=== PATIENT | male | born 1945 | race Caucasian/White ===

== ENCOUNTER 2018-06-17 13:29 | Emergency (ER) | payer MEDICAID, MEDICARE ==
[2018-06-17] MEDS ORDERED: traMADol 50 MG Tab PO ONE (14:13)
--- NOTE | 2018-06-17 14:14 | EDM.PDOC ---
ED HPI GENERAL MEDICAL PROBLEM - General Chief Complaint: General Stated Complaint: PAIN IN RIBS Time Seen by Provider: 06/17/18 13:41 Source of Information: Reports: Patient History Limitations: Reports: No Limitations - History of Present Illness INITIAL COMMENTS - FREE TEXT/NARRATIVE: History of present illness: []Patient has been moving and started complaining of right posterior rib pain and nonradiating. Review of systems: As per history of present illness and below otherwise all systems reviewed and negative. Past medical history: As per history of present illness and as reviewed below otherwise noncontributory. Surgical history: As per history of present illness and as reviewed below otherwise noncontributory. Social history: No reported history of drug or alcohol abuse. Family history: As per history of present illness and as reviewed below otherwise noncontributory. Physical exam: General: Well developed, well nourished in NAD HEENT: Atraumatic, normocephalic, pupils reactive, negative for conjunctival pallor or scleral icterus, mucous membranes moist, throat clear, neck supple, nontender, trachea midline. Lungs: Clear to auscultation, breath sounds equal bilaterally, chest tender right posterior ribs distal muscles, no bony or subcutaneous crepitance Heart: S1S2, regular, negative for clicks, rubs, or JVD. Abdomen: NABS, Soft, nondistended, nontender. Negative for masses or hepatosplenomegaly. Negative for costovertebral tenderness. Pelvis: Stable nontender. Genitourinary: Deferred. Rectal: Deferred. Extremities: Atraumatic, negative for cords or calf pain. Neurovascular unremarkable. Neuro: Awake, alert, oriented. Cranial nerves II through XII unremarkable. Cerebellum unremarkable. Motor and sensory unremarkable throughout. Exam nonfocal. Skin:warm and dry Diagnostics: Rib x-rays and chest x-ray negative for pneumothorax or fracture Therapeutics: Tramadol ED Course: Stable Impression: Chest wall contusion Prescriptions: Tramadol Plan: Take meds as directed, follow up with your primary care physician, return to ER if symptoms worsen or change. Definitive disposition and diagnosis as appropriate pending reevaluation and review of above. Right ribs Pain Score (Numeric/FACES): 8 - Related Data Allergies Allergy/AdvReac Type Severity Reaction Status Date / Time levofloxacin [From Levaquin] Allergy Swelling Verified 06/17/18 14:08 lorazepam Allergy Swelling Verified 06/17/18 14:08 Home Meds: Home Meds traMADol HCl [Tramadol HCl] 50 mg PO Q6H PRN #20 tablet 06/17/18 [Rx] ED ROS GENERAL - Review of Systems Review Of Systems: ROS reveals no pertinent complaints other than HPI. ED EXAM, GENERAL - Physical Exam Exam: See Below (See history of present illness) Course - Vital Signs Last Recorded V/S: Last Vital Signs Temp 98.5 F 06/17/18 14:08 Pulse 63 06/17/18 14:08 Resp 16 06/17/18 14:08 BP 146/83 H 06/17/18 14:08 Pulse Ox 95 06/17/18 14:08 - Orders/Labs/Meds Orders: Active Orders 24 hr Category Date Time Status Blood Glucose Check, Bedside [RC] ONETIME Care 06/17/18 14:13 Active Meds: Medications Discontinued Medications Generic Name Dose Route Start Last Admin Trade Name Freq PRN Reason Stop Dose Admin Tramadol HCl 100 mg 06/17/18 14:13 06/17/18 14:31 Ultram PO 06/17/18 14:14 100 mg ONETIME ONE Administration Tramadol HCl Confirm 06/17/18 14:28 06/17/18 14:35 Ultram Administered 06/17/18 14:29 Not Given Dose 50 mg .ROUTE .STK-MED ONE Departure - Departure Time of Disposition: 15:05 Disposition: Home, Self-Care 01 Condition: Good Clinical Impression: Contusion of rib on right side Qualifiers: Encounter type: initial encounter Qualified Code(s): S20.211A - Contusion of right front wall of thorax, initial encounter - Discharge Information *PRESCRIPTION DRUG MONITORING PROGRAM REVIEWED*: No *COPY OF PRESCRIPTION DRUG MONITORING REPORT IN PATIENT STACEY: No Prescriptions: traMADol HCl [Tramadol HCl] 50 mg PO Q6H PRN #20 tablet PRN Reason: Pain Referrals: PCP,Unknown [Primary Care Provider] - Forms: ED Department Discharge Additional Instructions: The following information is given to patients seen in the emergency department who are being discharged to home. This information is to outline your options for follow-up care. We provide all patients seen in our emergency department with a follow-up referral. The need for follow-up, as well as the timing and circumstances, are variable depending upon the specifics of your emergency department visit. If you don't have a primary care physician on staff, we will provide you with a referral. We always advise you to contact your personal physician following an emergency department visit to inform them of the circumstance of the visit and for follow-up with them and/or the need for any referrals to a consulting specialist. The emergency department will also refer you to a specialist when appropriate. This referral assures that you have the opportunity for follow-up care with a specialist. All of these measure are taken in an effort to provide you with optimal care, which includes your follow-up. Under all circumstances we always encourage you to contact your private physician who remains a resource for coordinating your care. When calling for follow-up care, please make the office aware that this follow-up is from your recent emergency room visit. If for any reason you are refused follow-up, please contact the [facility] Emergency Department at and asked to speak to the emergency department charge nurse. Take meds as directed, follow up with your primary care physician, return to ER if symptoms worsen or change. [facility] [address] [place] [address] - My Orders Last 24 Hours: My Active Orders 06/17/18 14:13 Blood Glucose Check, Bedside [RC] ONETIME - Assessment/Plan Last 24 Hours: My Active Orders 06/17/18 14:13 Blood Glucose Check, Bedside [RC] ONETIME
[2018-06-17] MEDS ORDERED: traMADol 50 MG Tab ONE (14:28)
--- NOTE | 2018-06-17 15:00 | CR ---
Indication: Pain in right ribs for 3 weeks. Technique: Three views of the right ribs retain. Comparison: None Findings: No displaced right rib fractures are identified. Surgical clips are identified in the right upper quadrant. No pneumothorax is identified. Impression: No displaced right rib fractures. Dictated by Tia Mcbride MD @ Jun 17 2018 2:58PM Signed by Dr. Tia Mcbride @ Jun 17 2018 2:58PM
== END 2018-06-17 15:30 | disposition home or self-care (01) ==
LOC: MW.ED 13:29
DX: S20.211A Contusion of right front wall of thorax, initial encounter (principal); Z88.1 Allergy status to other antibiotic agents; Z88.8 Allergy status to other drugs, medicaments and biological substances; X58.XXXA Exposure to other specified factors, initial encounter
CPT/HCPCS: 71100; 99283; A9270

== ENCOUNTER 2019-09-01 08:38 | Emergency (ER) | payer MEDICAID, MEDICARE, OTHER, SELFPAY ==
[2019-09-01] MEDS ORDERED: Sodium Chloride 0.9% 10 ML Syringe FLUSH PRN (08:54)
[2019-09-01] MEDS ORDERED: Sodium Chloride 0.9% 10 ML SDV IV PRN (08:54)
[2019-09-01] MEDS ORDERED: Ibuprofen 400 MG Tab PO ONE (08:54)
[2019-09-01] MEDS ORDERED: Sodium Chloride 0.9% 2.5 ML Syringe FLUSH PRN (08:54)
[2019-09-01] MEDS ORDERED: Acetaminophen 500 MG Tab PO ONE (08:54)
--- NOTE | 2019-09-01 08:59 | EDM.PDOC ---
ED HPI GENERAL MEDICAL PROBLEM - General Chief Complaint: ENT Problem Stated Complaint: LT SIDE CHEEK SWOLLEN Time Seen by Provider: 09/01/19 08:40 Source of Information: Reports: Patient History Limitations: Reports: No Limitations - History of Present Illness INITIAL COMMENTS - FREE TEXT/NARRATIVE: 73-year-old male with past medical history of tonsillar cancer status post radi ation (in remission), hypertension, type 2 diabetes presenting with facial swelling. 1 day history of left-sided mandibular swelling along with pain. This was not present when he went to bed last night. Intermittent history of dental care, has not seen a dentist in several years. No self treatment prior to arrival. Denies shortness of breath, voice change, neck stiffness, difficulty handling secretions. left lower dental Pain Score (Numeric/FACES): 10 - Related Data Allergies Allergy/AdvReac Type Severity Reaction Status Date / Time levofloxacin [From Levaquin] Allergy Swelling Verified 09/01/19 08:51 lorazepam Allergy Swelling Verified 09/01/19 08:51 Home Meds: Home Meds ALPRAZolam [Alprazolam ODT] 0.5 mg PO BID 09/01/19 [History] Amoxicillin/Clavulanate K [Augmentin 875-125 MG] 1 tab PO BID 10 Days #20 tablet 09/01/19 [Rx] Aspirin 81 mg PO DAILY 09/01/19 [History] Hydrocodone/Acetaminophen [Hydrocodone-Acetamin 5-217/10] 1 tab PO ASDIRECTED PRN 09/01/19 [History] Losartan [Cozaar] 25 mg PO DAILY 09/01/19 [History] Pioglitazone [Actos] 15 mg PO DAILY 09/01/19 [History] atorvaSTATin [Lipitor] 10 mg PO BEDTIME 09/01/19 [History] rOPINIRole [Requip] 0.25 mg PO BEDTIME 09/01/19 [History] Past Medical History Cardiovascular History: Reports: High Cholesterol, Hypertension Musculoskeletal History: Reports: Back Pain, Chronic Endocrine/Metabolic History: Reports: Diabetes, Type II - Infectious Disease History Infectious Disease History: Reports: Chicken Pox - Past Surgical History HEENT Surgical History: Reports: Oral Surgery, Tonsillectomy GI Surgical History: Reports: Cholecystectomy Musculoskeletal Surgical History: Reports: Arthroscopic Knee Social & Family History - Family History Family Medical History: Noncontributory - Caffeine Use Caffeine Use: Reports: Coffee ED ROS ENT - Review of Systems Review Of Systems: See Below Constitutional: Denies: Fever HEENT: Reports: Dental Pain. Denies: Throat Pain, Throat Swelling Respiratory: Denies: Shortness of Breath Cardiovascular: Denies: Chest Pain GI/Abdominal: Denies: Nausea, Vomiting Skin: Denies: Rash ED EXAM, ENT - Physical Exam Exam: See Below Text/Narrative:: Vital signs reviewed. Nursing notes reviewed. Constitutional: Awake, alert, non-distressed. Head: Normocephalic, atraumatic. Eyes: EOMI, conjunctiva normal, no discharge, no scleral icterus. Ears, Nose, Throat: External ears and nose normal, moist oral mucosa. No uvular deviation, no lingual elevation, floor of mouth is soft. Normal voice. Handling secretions without difficulty. There is a large area of swelling to the left side of the mandible with associated tenderness. Inspection of the oropharyngeal cavity reveals no obvious periapical abscess. Overall poor dentition. Neck: Supple, normal range of motion, able to flex and extend fully. No pain with tracheal tug. Cardiovascular: 2+ radial pulse, capillary refill less than 2 seconds. Pulmonary: normal work of breathing, no accessory muscle use. Integumentary: Appropriate color for ethnicity, warm, dry, no pallor or jaundice, no rash. Neurologic: Alert, answering questions appropriately, normal speech, no facial droop, moving all extremities well. Psychiatric: Appropriate mood and affect, normal thought process. Course - Vital Signs Text/Narrative:: 73-year-old male with facial swelling. Patient hemodynamically stable, afebrile, well-appearing, looks nontoxic. Differential diagnosis includes but is not limited to: Submandibular abscess, Madi's angina, periapical abscess, periodontal abscess, sialoadenitis, etc. Labs show hyperglycemia, otherwise reassuring. CT imaging demonstrated a possible dental abscess within the left second mandibular bicuspid with adjacent inflammatory change but no evidence of a soft tissue abscess. Physical exam is not concerning for Madi's angina, RPA, or epiglottitis. Neck is supple, patient is handling secretions well. No pain with tracheal tug. Not amenable to simple bedside I&D in the ED (not a classic periapical abscess). We will plan to treat with an oral dose of Augmentin and dental clinic follow- up within the next 48 hours along with acetaminophen and ibuprofen. Plan: Patient is stable to discharge home with outpatient dental care follow-up. Strict emergency department return precautions were provided, patient indicated understanding. All questions were answered prior to departure. Discharged in good condition. Last Recorded V/S: Last Vital Signs Temp 36.1 C 09/01/19 08:48 Pulse 82 09/01/19 10:48 Resp 16 09/01/19 10:48 BP 148/93 H 09/01/19 10:48 Pulse Ox 95 09/01/19 10:48 - Orders/Labs/Meds Orders: Active Orders 24 hr Category Date Time Status Peripheral IV Insertion Adult [OM.PC] Stat Oth 09/01/19 08:54 Ordered Labs: Laboratory Tests 09/01/19 09/01/19 Range/Units 09:03 09:03 WBC 10.51 (4.0-11.0) K/uL RBC 5.22 (4.50-5.90) M/uL Hgb 14.5 (13.0-17.0) g/dL Hct 44.0 (38.0-50.0) % MCV 84.3 (80.0-98.0) fL MCH 27.8 (27.0-32.0) pg MCHC 33.0 (31.0-37.0) g/dL RDW Std Deviation 45.6 (28.0-62.0) fl RDW Coeff of Gisel 15 (11.0-15.0) % Plt Count 261 (150-400) K/uL MPV 9.70 (7.40-12.00) fL Neut % (Auto) 69.8 (48.0-80.0) % Lymph % (Auto) 13.2 L (16.0-40.0) % Dooly % (Auto) 13.7 (0.0-15.0) % Eos % (Auto) 3.0 (0.0-7.0) % Baso % (Auto) 0.3 (0.0-1.5) % Neut # (Auto) 7.3 H (1.4-5.7) K/uL Lymph # (Auto) 1.4 (0.6-2.4) K/uL Dooly # (Auto) 1.4 H (0.0-0.8) K/uL Eos # (Auto) 0.3 (0.0-0.7) K/uL Baso # (Auto) 0.0 (0.0-0.1) K/uL Nucleated RBC % 0.0 /100WBC Nucleated RBCs # 0 K/uL Sodium 136 (136-148) mmol/L Potassium 4.2 (3.5-5.1) mmol/L Chloride 98 (98-107) mmol/L Carbon Dioxide 26.5 (21.0-32.0) mmol/L BUN 14 (7.0-18.0) mg/dL Creatinine 1.1 (0.8-1.3) mg/dL Est Cr Clr Drug Dosing 51.25 mL/min Estimated GFR (MDRD) > 60.0 ml/min Glucose 183 H (74-106) mg/dL Calcium 8.9 (8.5-10.1) mg/dL Meds: Medications Discontinued Medications Generic Name Dose Route Start Last Admin Trade Name Freq PRN Reason Stop Dose Admin Acetaminophen 1,000 mg 09/01/19 08:54 09/01/19 09:00 Tylenol Extra Strength PO 09/01/19 08:55 1,000 mg ONETIME ONE Administration Ibuprofen 600 mg 09/01/19 08:54 09/01/19 09:00 Motrin PO 09/01/19 08:55 600 mg ONETIME ONE Administration Iopamidol 100 ml 09/01/19 10:04 09/01/19 10:05 Isovue-370 (76%) IVPUSH 09/01/19 10:05 100 ml ONETIME ONE Administration Sodium Chloride 10 ml 09/01/19 08:54 09/01/19 09:07 Saline Flush FLUSH 10 ml ASDIRECTED PRN Administration Keep Vein Open Sodium Chloride 2.5 ml 09/01/19 08:54 09/01/19 09:04 Saline Flush FLUSH 2.5 ml ASDIRECTED PRN Administration Keep Vein Open Sodium Chloride 10 ml 09/01/19 08:54 09/01/19 09:07 Normal Saline IV 10 ml ASDIRECTED PRN Administration IV Use Departure - Departure Time of Disposition: 10:33 Disposition: Home, Self-Care 01 Condition: Good Clinical Impression: Dental abscess - Discharge Information *PRESCRIPTION DRUG MONITORING PROGRAM REVIEWED*: Not Applicable *COPY OF PRESCRIPTION DRUG MONITORING REPORT IN PATIENT STACEY: Not Applicable Prescriptions: Amoxicillin/Clavulanate K [Augmentin 875-125 MG] 1 tab PO BID 10 Days #20 tablet Instructions: Dental Abscess, [id number] Referrals: Giovanny Guzman MD [Primary Care Provider] - Forms: ED Department Discharge Additional Instructions: Thank you for choosing the [facility] emergency department in [place] for your medical needs today. It was a pleasure caring for you. You were seen in the emergency department for facial swelling and pain. You were found to have a dental abscess (pocket of infection), but not one that can be easily drained in the emergency department. You need to be seen by a dentist. You were prescribed antibiotics for 10 days. I recommend [id number] extra strength acetaminophen (1000 mg every 6 hours) and ibuprofen (400 mg every 6 hours) to help treat your pain. Please return the emergency department immediately if your symptoms worsen or if you feel worse. The following information is given to patients seen in the emergency department who are being discharged. This information is to outline your options for follow-up care. We provide all patients seen in our emergency department with a follow-up referral. The need for follow-up, as well as the timing and circumstances, are variable depending upon the specifics of your emergency department visit. If you don't have a primary care physician on staff, we will provide you with a referral. We always advise you to contact your personal physician following an emergency department visit to inform them of the circumstance of the visit and for follow-up with them and/or the need for any referrals to a consulting specialist. The emergency department will also refer you to a specialist when appropriate. This referral assures that you have the opportunity for follow-up care with a specialist. All of these measure are taken in an effort to provide you with optimal care, which includes your follow-up. Under all circumstances we always encourage you to contact your private physician who remains a resource for coordinating your care. When calling for follow-up care, please make the office aware that this follow-up is from your recent emergency room visit. If for any reason you are refused follow-up, please contact the [facility] Emergency Department at and asked to speak to the emergency department charge nurse. If you do not have a primary care physician that is caring for you, you can contact these clinics below to set up an appointment to establish care: [facility] [address] [place] [id number] [facility] [address] [place] [id number] Sepsis Event Note (ED) - Evaluation Sepsis Screening Result: No Definite Risk - Focused Exam Vital Signs: Vital Signs Temp Pulse Resp BP Pulse Ox 09/01/19 10:48 82 16 148/93 H 95 09/01/19 08:48 36.1 C 107 H 16 187/110 H 95 - My Orders Last 24 Hours: My Active Orders 09/01/19 08:54 Peripheral IV Insertion Adult [OM.PC] Stat - Assessment/Plan Last 24 Hours: My Active Orders 09/01/19 08:54 Peripheral IV Insertion Adult [OM.PC] Stat
[2019-09-01 09:30] LABS: BLOOD UREA NITROGEN,BUN 14 mg/dL (7.0-18.0); CARBON DIOXIDE,CO2 26.5 mmol/L (21.0-32.0); CHLORIDE,CL 98 mmol/L (98-107); GLUCOSE RANDOM 183 mg/dL (74-106); POTASSIUM,K 4.2 mmol/L (3.5-5.1); SODIUM,NA 136 mmol/L (136-148)
[2019-09-01] MEDS ORDERED: Iopamidol 755 Mg/ML 100 ML Bottle IVPUSH ONE (10:04)
--- NOTE | 2019-09-01 10:29 | CT ---
CT maxillofacial Technique: Multiple axial sections were obtained through the facial structures. Intravenous contrast wasn't utilized. Comparison: No previous facial study is available. Findings: Right and left globes are symmetric. Mild mucosal thickening is noted within the maxillary sinuses. Soft tissue density is noted within the right side of the nasal cavity which could represent mucous or asymmetric mucosal thickening, difficult to exclude nasal polyp. Minimal retention cyst noted within the sphenoid sinus. Small lucency is identified around the root of the left mandibular second bicuspid possibly due to root abscess. Soft tissue swelling and inflammatory change is noted in this area. No focal fluid collections to indicate a discrete soft tissue abscess is seen at this time. Parotid and submandibular salivary glands are normal. No adenopathy is seen. No additional bony abnormality is appreciated. Impression: 1. Possible tooth abscess within the left second mandibular bicuspid with adjacent inflammatory change within the soft tissues. No definite soft tissue fluid collections are seen to indicate abscess. 2. Chronic appearing sinus findings as noted above. Diagnostic code #3 Study was dictated in MDT
== END 2019-09-01 10:48 | disposition home or self-care (01) ==
LOC: MW.ED 08:38
DX: K04.7 Periapical abscess without sinus (principal); I10 Essential (primary) hypertension; E78.00 Pure hypercholesterolemia, unspecified; E11.9 Type 2 diabetes mellitus without complications; Z88.1 Allergy status to other antibiotic agents; Z88.8 Allergy status to other drugs, medicaments and biological substances; Z79.82 Long term (current) use of aspirin; Z79.899 Other long term (current) drug therapy
CPT/HCPCS: 36415; 70487; 80048; 85025; 99284; A9270; J7050; Q9967; 99283